=== PATIENT | male | born 1965 | race Caucasian/White ===

== ENCOUNTER 2023-05-10 17:24 | Observation (INO) ==
[2023-05-10 18:17] LABS: ABS Lymphocytes 0.6 10^3/uL (1.0-4.8); ABS Monocytes 0.7 10^3/uL (0.0-1.1); ABS Neutrophils 3.5 10^3/uL (1.5-7.6); ABS Nucleated RBC 0.01 10^3/ul; Eosinophil % 0.1 %; Hematocrit 24.6 % (38-53); Hemoglobin 8.6 g/dL (13.2-16.3); Mean Corpuscular Hemoglobin 30.4 pg (27-33); Mean Corpuscular Hgb Conc 34.8 g/dL (31-36); Mean Corpuscular Volume 87.5 fL (80-97); Mean Platelet Volume 7.8 fL (7.5-11.2); Nucleated Red Blood Cells % 0.1 %/100WBC (0.0-0.8); Platelet Count 206 10^3/uL (150-450); Red Blood Count 2.81 10^6/uL (4.06-5.63); Red Cell Distribution Width 14.2 % (12-17); White Blood Count 4.7 10^3/uL (3.6-10.2)
[2023-05-10 18:57] LABS: Albumin 2.9 g/dL (3.2-5.2); Albumin/Globulin Ratio 1.3 (1-3); C Reactive Protein 109.23 mg/L (<8.01); Calcium 7.3 mg/dL (8.6-10.3); Creatinine, Serum 0.63 mg/dL (0.67-1.17); Globulin 2.3 g/dL (2-4); Potassium 3.7 mmol/L (3.5-5.0); Total Bilirubin 0.3 mg/dL (0.2-1.0); Total Protein 5.2 g/dL (6.4-8.9); eGFR CKD-EPI 109.6 (>60)
[2023-05-10 19:05] LABS: Activated Partial Thrombo Time 37.9 seconds (26.0-38.0); INR 1.16 (0.83-1.13)
[2023-05-10 19:51] LABS: High Sensitivity Troponin 1 Hr 401 pg/mL (<20)
[2023-05-10 21:05] LABS: ABS Lymphocytes 1.1 10^3/uL (1.0-4.8); ABS Monocytes 0.6 10^3/uL (0.0-1.1); ABS Neutrophils 3.4 10^3/uL (1.5-7.6); ABS Nucleated RBC 0.01 10^3/ul; Hematocrit 25.3 % (38-53); Hemoglobin 8.8 g/dL (13.2-16.3); Lymphocyte % 21.6 %; Mean Corpuscular Hemoglobin 30.4 pg (27-33); Mean Corpuscular Hgb Conc 34.7 g/dL (31-36); Mean Corpuscular Volume 87.6 fL (80-97); Nucleated Red Blood Cells % 0.1 %/100WBC (0.0-0.8); Platelet Count 218 10^3/uL (150-450); Red Blood Count 2.89 10^6/uL (4.06-5.63); Red Cell Distribution Width 14.2 % (12-17); White Blood Count 5.1 10^3/uL (3.6-10.2)
[2023-05-10 21:16] LABS: Urine Appearance Clear; Urine Bilirubin Negative (Negative); Urine Blood Negative (Negative); Urine Color Light-Yellow; Urine Glucose Negative (Negative); Urine Ketones Negative (Negative); Urine Nitrite Negative (Negative); Urine Protein Negative (Negative); Urine Specific Gravity 1.012 (1.002-1.030); Urine Urobilinogen Negative (Negative)
[2023-05-10 21:46] LABS: Body Fluid Appearance Bloody; Body Fluid Band 1 %; Body Fluid Mono 5 %; Body Fluid Other Cells 4; Body Fluid Source Pleural Fluid; Body Fluid Total Cells Counted 200; Body Fluid Total Nucleated 267 /mcL; Body Fluid Variant Lymph 1 %
[2023-05-10 21:47] LABS: Body Fluid Color Red
[2023-05-10] MEDS: Iohexol 350 (CONTRAST) 500 ML MDV IV ONE (21:55)
[2023-05-10 22:14] LABS: Anion Gap 6 mmol/L (2-16); Blood Urea Nitrogen 12 mg/dL (6-24); CO2 Carbon Dioxide 27 mmol/L (22-32); Calcium 7.4 mg/dL (8.6-10.3); Chloride 94 mmol/L (101-111); Creatinine, Serum 0.68 mg/dL (0.67-1.17); Glucose 115 mg/dL (70-100); Potassium 3.5 mmol/L (3.5-5.0); Sodium 127 mmol/L (135-145); eGFR CKD-EPI 107.1 (>60)
[2023-05-10 22:42] LABS: Osmolality Serum 269 mOsm/kg (275-295)
[2023-05-10 22:43] LABS: % Iron Saturation 11 % (15-55); .Transferrin 136 mg/dL (203-362); Iron < 20 ug/dL (50-212); Total Iron Binding Capacity 190 mcg/dL (250-450); Unsaturated Iron Binding 170 ug/dL
[2023-05-10 23:05] LABS: Ferritin 605.3 ng/mL (24-336)
[2023-05-10 23:09] LABS: Folate 15.74 ng/mL (5.90-24.80)
[2023-05-10 23:10] LABS: Vitamin B12 165 pg/mL (180-914)
[2023-05-10 23:47] LABS: Urine Osmo 319 mOsm/kg (150-1150)
[2023-05-11] MEDS: Cyanocobalamin INJ 1,000 MCG/ML VIAL 1 ML VIAL IM ONE (00:47)
[2023-05-11] MEDS: Enoxaparin 40 MG/0.4 ML SYR SUBCUT SCH (05:28)
[2023-05-11 05:34] LABS: ABS Lymphocytes 0.6 10^3/uL (1.0-4.8); ABS Monocytes 0.2 10^3/uL (0.0-1.1); ABS Neutrophils 2.5 10^3/uL (1.5-7.6); Hematocrit 24.4 % (38-53); Hemoglobin 8.5 g/dL (13.2-16.3); Lymphocyte % 17.3 %; Mean Corpuscular Hemoglobin 30.6 pg (27-33); Mean Corpuscular Hgb Conc 34.8 g/dL (31-36); Mean Corpuscular Volume 87.7 fL (80-97); Mean Platelet Volume 7.8 fL (7.5-11.2); Nucleated Red Blood Cells % 0.1 %/100WBC (0.0-0.8); Platelet Count 183 10^3/uL (150-450); Red Blood Count 2.79 10^6/uL (4.06-5.63); Red Cell Distribution Width 14.5 % (12-17); White Blood Count 3.4 10^3/uL (3.6-10.2)
[2023-05-11 05:48] LABS: Calcium 7.6 mg/dL (8.6-10.3); Creatinine, Serum 0.65 mg/dL (0.67-1.17); Magnesium 1.7 mg/dL (1.9-2.7); Potassium 3.7 mmol/L (3.5-5.0); eGFR CKD-EPI 108.5 (>60)
[2023-05-11] MEDS ORDERED: DABRAFENIB 75 MG PO SCH (09:00)
[2023-05-11] MEDS: DABRAFENIB 75 MG PO SCH (09:15)
[2023-05-11] MEDS: TRAMETINIB 2 MG PO SCH (09:16)
[2023-05-11] MEDS: Iron Sucrose 200 MG in NS 0.9% 100 ml BAG 100 ML IVPB SCH (12:30)
[2023-05-11 13:25] LABS: High Sensitivity Troponin 1 Hr 256 pg/mL (<20)
[2023-05-11 13:44] VITALS: BP 109/56
== END 2023-05-11 15:55 | disposition home or self-care (01) ==
LOC: ED 17:24 → EDHOLD 17:24 → SUATTDRO 22:41 → MEDTELE 23:26
PROVIDERS: ADMIT Internal Medicine; ATTEND Student in an Organized Health Care Education/Training Program

== ENCOUNTER 2023-05-20 18:32 | Inpatient (IN) ==
[2023-05-20 20:11] LABS: Activated Partial Thrombo Time 38.2 seconds (26.0-38.0); INR 1.33 (0.83-1.13)
[2023-05-20 20:23] LABS: ALT 51 U/L (7-52); AST 36 U/L (13-39); Albumin 2.3 g/dL (3.2-5.2); Alkaline Phosphatase 639 U/L (35-149); Anion Gap 6 mmol/L (2-16); Blood Urea Nitrogen 27 mg/dL (6-24); C Reactive Protein 102.62 mg/L (<8.01); CO2 Carbon Dioxide 23 mmol/L (22-32); Calcium 6.5 mg/dL (8.6-10.3); Chloride 97 mmol/L (101-111); Creatinine, Serum 0.69 mg/dL (0.67-1.17); Globulin 2.3 g/dL (2-4); Glucose 128 mg/dL (70-100); Potassium 5.2 mmol/L (3.5-5.0); Sodium 126 mmol/L (135-145); Total Bilirubin 1.6 mg/dL (0.2-1.0); Total Protein 4.6 g/dL (6.4-8.9); eGFR CKD-EPI 106.6 (>60)
[2023-05-20] MEDS: Piperacillin/Tazobac 3.375 BAG 3.375 GM/100 ML BAG IV ONE (20:42)
[2023-05-20 21:12] LABS: Hematocrit 17.5 % (38-53); Hemoglobin 5.7 g/dL (13.2-16.3); Mean Corpuscular Hemoglobin 29.4 pg (27-33); Mean Corpuscular Hgb Conc 32.9 g/dL (31-36); Mean Corpuscular Volume 89.6 fL (80-97); Mean Platelet Volume 9.2 fL (7.5-11.2); Platelet Count 298 10^3/uL (150-450); Red Blood Count 1.95 10^6/uL (4.06-5.63); Red Cell Distribution Width 17.1 % (12-17); White Blood Count 15.3 10^3/uL (3.6-10.2)
[2023-05-20] MEDS: Vancomycin 1,250 MG in NS 0.9% 250 ml 250 ML IVPB ONE (21:28)
[2023-05-20 21:35] LABS: Anisocytosis 1+; Polychromasia 1+
[2023-05-20 21:36] LABS: ABS Basophils 0.1 10^3/uL (0.0-0.1); ABS Lymphocytes 0.8 10^3/uL (1.0-4.8); ABS Monocytes 0.8 10^3/uL (0.0-1.1); ABS Neutrophils 13.6 10^3/uL (1.5-7.6); ABS Nucleated RBC 0.02 10^3/ul; Eosinophil % 0.1 %; Lymphocyte % 5.2 %; Nucleated Red Blood Cells % 0.1 %/100WBC (0.0-0.8)
[2023-05-20] MEDS: Lactated Ringers 1000 ml BAG 1,000 ML IV ONE (21:41)
[2023-05-21 01:06] LABS: ABS Lymphocytes 1.2 10^3/uL (1.0-4.8); ABS Monocytes 0.9 10^3/uL (0.0-1.1); ABS Neutrophils 12.6 10^3/uL (1.5-7.6); ABS Nucleated RBC 0.02 10^3/ul; Hematocrit 20.4 % (38-53); Hemoglobin 6.9 g/dL (13.2-16.3); Lymphocyte % 7.9 %; Mean Corpuscular Hgb Conc 33.6 g/dL (31-36); Mean Corpuscular Volume 89.4 fL (80-97); Mean Platelet Volume 8.8 fL (7.5-11.2); Nucleated Red Blood Cells % 0.1 %/100WBC (0.0-0.8); Platelet Count 290 10^3/uL (150-450); Red Blood Count 2.29 10^6/uL (4.06-5.63); Red Cell Distribution Width 16.7 % (12-17); White Blood Count 14.7 10^3/uL (3.6-10.2)
[2023-05-21] MEDS ORDERED: Vancomycin per Pharmacy 1 EA NOTE FOLLOW UP PRN (03:41)
[2023-05-21 04:07] LABS: % Iron Saturation 121 % (15-55); .Transferrin 102 mg/dL (203-362); Iron 173 ug/dL (50-212); LDH 375 U/L (140-271); Total Iron Binding Capacity 143 mcg/dL (250-450); Unsaturated Iron Binding -30 ug/dL
[2023-05-21 04:32] LABS: Folate 13.01 ng/mL (5.90-24.80)
[2023-05-21 04:33] LABS: Vitamin B12 > 1450 pg/mL (180-914)
[2023-05-21] MEDS: ZOSYN 3.375 GM x ONE DOSE over 30 miuntes IV (04:40)
[2023-05-21 05:57] LABS: Ferritin 1368.7 ng/mL (24-336)
[2023-05-21] MEDS: Vancomycin 1,250 MG in NS 0.9% 250 ml 250 ML IVPB SCH (06:32)
[2023-05-21 07:52] LABS: Mean Corpuscular Hemoglobin 29.4 pg (27-33); Mean Corpuscular Hgb Conc 33.4 g/dL (31-36); Mean Corpuscular Volume 88.1 fL (80-97); Mean Platelet Volume 8.6 fL (7.5-11.2); Platelet Count 287 10^3/uL (150-450); Red Blood Count 2.38 10^6/uL (4.06-5.63); Red Cell Distribution Width 17.3 % (12-17); White Blood Count 16.3 10^3/uL (3.6-10.2)
[2023-05-21 07:56] LABS: ABS Basophils 0.1 10^3/uL (0.0-0.1); ABS Lymphocytes 1.2 10^3/uL (1.0-4.8); ABS Monocytes 1.9 10^3/uL (0.0-1.1); ABS Neutrophils 13.1 10^3/uL (1.5-7.6); ABS Nucleated RBC 0.02 10^3/ul; Lymphocyte % 7.5 %; Nucleated Red Blood Cells % 0.1 %/100WBC (0.0-0.8)
[2023-05-21] MEDS ORDERED: Vancomycin 1,250 MG in NS 0.9% 250 ml 250 ML IVPB ONE (08:00)
[2023-05-21 08:34] LABS: Albumin 2.3 g/dL (3.2-5.2); Albumin/Globulin Ratio 0.9 (1-3); Calcium 6.5 mg/dL (8.6-10.3); Creatinine, Serum 1.15 mg/dL (0.67-1.17); Globulin 2.5 g/dL (2-4); Potassium 4.7 mmol/L (3.5-5.0); Total Bilirubin 2.2 mg/dL (0.2-1.0); Total Protein 4.8 g/dL (6.4-8.9); eGFR CKD-EPI 73.3 (>60)
[2023-05-21] MEDS ORDERED: TRAMETINIB 2 MG PO SCH (09:00)
[2023-05-21] MEDS ORDERED: DABRAFENIB 75 MG PO SCH (09:00)
[2023-05-21 09:36] LABS: Urine Appearance Clear; Urine Bilirubin Negative (Negative); Urine Blood 2+ (Negative); Urine Color Yellow; Urine Glucose Negative (Negative); Urine Ketones Negative (Negative); Urine Nitrite Negative (Negative); Urine Protein Negative (Negative); Urine Specific Gravity 1.021 (1.002-1.030); Urine Urobilinogen Negative (Negative); Urine pH 5.5 (5.0-8.0)
[2023-05-21 09:59] LABS: Urine Bacteria Absent /HPF (Absent); Urine Red Blood Cell 1+(3-5/hpf) /HPF (0-Trace); Urine Squamous Epithelial Cell Present /HPF (Absent); Urine White Blood Cell Trace(0-5/hpf) /HPF (0-Trace)
[2023-05-21] MEDS: Piperacillin/Tazobac 3.375 BAG 3.375 GM/100 ML BAG IV SCH (10:49)
[2023-05-21] MEDS: Acetaminophen IV 1 GM/100ML 1,000 MG/100 ML BAG IV SCH (11:12)
[2023-05-21] MEDS: Iohexol 350 (CONTRAST) 500 ML MDV IV ONE (13:10)
[2023-05-21 17:09] LABS: Hematocrit 21.9 % (38-53); Hemoglobin 7.4 g/dL (13.2-16.3)
[2023-05-22] MEDS: Acetaminophen IV 1 GM/100ML 1,000 MG/100 ML BAG IV PRN (02:50)
[2023-05-22 04:27] LABS: ABS Lymphocytes 0.7 10^3/uL (1.0-4.8); ABS Monocytes 0.8 10^3/uL (0.0-1.1); ABS Neutrophils 7.9 10^3/uL (1.5-7.6); ABS Nucleated RBC 0.02 10^3/ul; Hematocrit 19.1 % (38-53); Hemoglobin 6.7 g/dL (13.2-16.3); Lymphocyte % 7.8 %; Mean Corpuscular Hemoglobin 30.7 pg (27-33); Mean Corpuscular Hgb Conc 35.1 g/dL (31-36); Mean Corpuscular Volume 87.6 fL (80-97); Mean Platelet Volume 8.2 fL (7.5-11.2); Nucleated Red Blood Cells % 0.2 %/100WBC (0.0-0.8); Platelet Count 265 10^3/uL (150-450); Red Blood Count 2.18 10^6/uL (4.06-5.63); Red Cell Distribution Width 17.4 % (12-17); White Blood Count 9.5 10^3/uL (3.6-10.2)
[2023-05-22 04:56] LABS: Calcium 6.6 mg/dL (8.6-10.3); Creatinine, Serum 1.23 mg/dL (0.67-1.17); Magnesium 2.1 mg/dL (1.9-2.7); Potassium 4.2 mmol/L (3.5-5.0); Vancomycin Trough 20.3 mcg/mL; eGFR CKD-EPI 67.6 (>60)
[2023-05-22] MEDS: Vancomycin Trough Check NOTE FOLLOW UP ONE (05:09)
[2023-05-22 10:20] LABS: Hematocrit 23.2 % (38-53); Hemoglobin 7.8 g/dL (13.2-16.3)
[2023-05-22] MEDS: cefTRIAXone 1 gm/50 mL D5W 1 GM/50 ML BAG IV SCH (10:40)
[2023-05-22 15:40] LABS: Hematocrit 21.6 % (38-53); Hemoglobin 7.3 g/dL (13.2-16.3)
[2023-05-23 07:24] LABS: ABS Lymphocytes 0.9 10^3/uL (1.0-4.8); ABS Monocytes 0.9 10^3/uL (0.0-1.1); ABS Nucleated RBC 0.01 10^3/ul; Eosinophil % 0.1 %; Hematocrit 24.3 % (38-53); Hemoglobin 7.9 g/dL (13.2-16.3); Lymphocyte % 9.9 %; Mean Corpuscular Hemoglobin 29.2 pg (27-33); Mean Corpuscular Hgb Conc 32.6 g/dL (31-36); Mean Corpuscular Volume 89.5 fL (80-97); Mean Platelet Volume 8.1 fL (7.5-11.2); Nucleated Red Blood Cells % 0.1 %/100WBC (0.0-0.8); Platelet Count 283 10^3/uL (150-450); Red Blood Count 2.71 10^6/uL (4.06-5.63); Red Cell Distribution Width 19.8 % (12-17); White Blood Count 8.7 10^3/uL (3.6-10.2)
[2023-05-23 07:28] LABS: Calcium 6.8 mg/dL (8.6-10.3); Creatinine, Serum 1.42 mg/dL (0.67-1.17); Magnesium 2.2 mg/dL (1.9-2.7); Potassium 4.4 mmol/L (3.5-5.0); eGFR CKD-EPI 56.9 (>60)
[2023-05-23 10:10] LABS: Albumin 2.5 g/dL (3.2-5.2); Direct Bilirubin 0.5 mg/dL (0.03-0.18); Globulin 2.5 g/dL (2-4); Total Bilirubin 1.5 mg/dL (0.2-1.0)
[2023-05-23] MEDS: NS 0.9% 1000 ml BAG 1,000 ML IV SCH (10:20)
[2023-05-24 07:47] LABS: Hematocrit 22.9 % (38-53); Hemoglobin 7.6 g/dL (13.2-16.3); Mean Corpuscular Hemoglobin 29.4 pg (27-33); Mean Corpuscular Hgb Conc 33.2 g/dL (31-36); Mean Corpuscular Volume 88.4 fL (80-97); Platelet Count 268 10^3/uL (150-450); Red Blood Count 2.59 10^6/uL (4.06-5.63); Red Cell Distribution Width 19.5 % (12-17); White Blood Count 4.3 10^3/uL (3.6-10.2)
[2023-05-24 08:24] LABS: Albumin 2.5 g/dL (3.2-5.2); Calcium 6.9 mg/dL (8.6-10.3); Creatinine, Serum 0.82 mg/dL (0.67-1.17); Globulin 2.4 g/dL (2-4); Magnesium 2.1 mg/dL (1.9-2.7); Potassium 4.2 mmol/L (3.5-5.0); Total Bilirubin 1.3 mg/dL (0.2-1.0); Total Protein 4.9 g/dL (6.4-8.9); eGFR CKD-EPI 101.2 (>60)
[2023-05-24 13:56] VITALS: BP 132/70
== END 2023-05-24 15:20 | disposition home health service (06) | DRG 720 ==
LOC: ED 18:32 → SUATTDRO 05-21 01:28 → EDHOLD 05-21 01:28 → ICU 05-21 09:47 → MEDTELE 05-23 01:31
PROVIDERS: ADMIT Internal Medicine; ATTEND Internal Medicine